=== PATIENT | female | born 1990 | race Hispanic/Latino ===

== ENCOUNTER 2018-06-27 21:29 | Inpatient (IN) | payer MEDICAID ==
[2018-06-27] MEDS ORDERED: AMPICILLIN/NS 2 GM/100 ML 2 GM/100 ML BAG IV ONE (22:24)
[2018-06-27] MEDS ORDERED: MINERAL OIL PO PRN (22:24)
[2018-06-27] MEDS ORDERED: XYLOCAINE 2% INFILTRATI ONE (22:24)
[2018-06-27] MEDS ORDERED: BRETHINE SUB-Q PRN (22:24)
[2018-06-27] MEDS ORDERED: STADOL IV PRN (22:24)
[2018-06-27] MEDS ORDERED: BRETHINE IVP PRN (22:24)
[2018-06-27] MEDS ORDERED: SUBLIMAZE IV PRN (22:24)
[2018-06-27] MEDS ORDERED: PITOCin/NS 20 UNIT/1000ML DRIP 20 UNITS/1,000 ML BAG IV SCH (23:00)
[2018-06-27] MEDS ORDERED: LACTATED RINGERS 1,000 ML IV SCH (23:00)
[2018-06-27 23:31] LABS: Hematocrit 36.7 % (30.3-42.9); Hemoglobin 12.1 gm/dl (10.1-14.3); Mean Corpuscular HGB Conc 33 % (30-34); Mean Corpuscular Volume 92 fl (79-97); Platelet Count 239 K/mm3 (140-440); Red Blood Count 3.99 M/mm3 (3.65-5.03); Red Cell Distribution Width 13.1 % (13.2-15.2)
--- NOTE | 2018-06-27 23:46 | Procedure Note ---
OB Delivery Note - Delivery Date of Delivery: 06/27/18 Surgeon: OCTAVIO MARCOS Estimated blood loss: 200cc - Vaginal Delivery presentation: vertex Delivery position: OA Intrapartum events: precipitous labor- <3hr Delivery induction: none Delivery augmentation: rupture of membranes Delivery monitor: external FHT, external uterine Route of delivery: Delivery placenta: spontaneous Delivery cord: 3 umbilical vessels Episiotomy: none Delivery laceration: 1st degree (vaginal/perineal) Delivery repair: vicryl Anesthesia: none Delivery comments: Infant delivered OA and placed on Mom's chest for [id number] bonding and delayed cord clamping, cut by GramdMa - A at 1 minute: 9 at 5 minutes: 9 Gender: Male (3582gms)
--- NOTE | 2018-06-27 23:57 | History and Physical Report ---
History of Present Illness Date of examination: 06/27/18 Date of admission: 06/27/18 22:39 Chief complaint: contractions History of present illness: 28y/o @ 40+0 weeks presents with regular uterine contractions. She denies leakage of fluid. Patient states she is GBS positive. Past History Past Medical History: no pertinent history Past Surgical History: no surgical history Social history: single - Obstetrical History Expected Date of Delivery: 06/27/18 Actual Gestation: 40 Week(s) 0 Day(s) : 4 Para: 2 Hx # Term Pregnancies: 2 Number of Pregnancies: 0 Spontaneous Abortions: 1 Induced : 0 Number of Living Children: 2 Medications and Allergies Allergies Allergy/AdvReac Type Severity Reaction Status Date / Time No Known Allergies Allergy Unverified 10/03/13 09:03 Home Medications Medication Instructions Recorded Confirmed Last Taken Type Vit,Calc76/Iron/Folic 1 tab PO DAILY 06/27/18 06/27/18 06/27/18 History [Pnv 29-1 Tablet] valACYclovir [Valtrex] 500 mg PO BID 06/27/18 06/27/18 06/27/18 History Active Meds: Active Medications Butorphanol Tartrate (Stadol) 2 mg IV Q2H PRN PRN Reason: Pain , Severe (7-10) Ephedrine Sulfate (Ephedrine Sulfate) 10 mg IV Q2M PRN PRN Reason: Hypotension Fentanyl (Sublimaze) 100 mcg IV Q2H PRN PRN Reason: Labor Pain Ampicillin Sodium (Ampicillin/Ns 1 Gm/50 Ml) 1 gm in 50 mls @ 100 mls/hr IV Q4HR LUIGI; Protocol Lactated Ringer's (Lactated Ringers) 1,000 mls @ 125 mls/hr IV DIRECT LUIGI Oxytocin/Sodium Chloride (Pitocin/Ns 20 Unit/1000ml Drip) 20 units in 1,000 mls @ 125 mls/hr IV DIRECT LUIGI Mineral Oil (Mineral Oil) 30 ml PO QHS PRN PRN Reason: Constipation Terbutaline Sulfate (Brethine) 0.25 mg SUB-Q ONCE PRN PRN Reason: Hyperstimulation/Hypertonicity Terbutaline Sulfate (Brethine) 0.25 mg IVP ONCE PRN PRN Reason: Hyperstimulation/Hypertonicity Review of Systems All systems: negative Genitourinary: contractions - Vital Signs Vital signs: Vital Signs Pulse Pulse Ox 81 100 06/27/18 21:46 06/27/18 21:46 Temp Pulse Resp BP Pulse Ox 98.8 F 75 20 128/74 97 06/27/18 21:48 06/27/18 23:55 06/27/18 21:48 06/27/18 23:55 06/27/18 22:16 - Physical Exam Breasts: Positive: deferred Cardiovascular: Regular rate Lungs: Positive: Clear to auscultation Abdomen: Positive: normal appearance Results Result Diagrams: 06/27/18 22:20 Abnormal lab results 06/27/18 Range/Units 22:20 WBC 11.5 H (4.5-11.0) K/mm3 RDW 13.1 L (13.2-15.2) % All other labs normal. Assessment and Plan - Patient Problems (1) Active labor at term Current Visit: Yes Status: Acute Plan to address problem: admit to L&D
[2018-06-28] MEDS ORDERED: DULCOLAX PR PRN (00:04)
[2018-06-28] MEDS ORDERED: TUCKS PAD TP PRN (00:04)
[2018-06-28] MEDS ORDERED: MILK OF MAGNESIA PO PRN (00:04)
[2018-06-28] MEDS ORDERED: LANSINOH TP PRN (00:04)
[2018-06-28] MEDS ORDERED: PHENERGAN PO PRN (00:04)
[2018-06-28] MEDS ORDERED: TYLENOL PO PRN (00:04)
[2018-06-28] MEDS ORDERED: BENADRYL PO PRN (00:04)
[2018-06-28] MEDS ORDERED: ZOFRAN IV PRN (00:04)
[2018-06-28] MEDS ORDERED: PHENERGAN PR PRN (00:04)
[2018-06-28] MEDS: NORCO 5/325 PO PRN ×2 (00:48→23:44)
[2018-06-28] MEDS: IBUPROFEN PO SCH ×4 (00:49→23:44)
[2018-06-28] MEDS ORDERED: SODIUM CHLORIDE FLUSH SYRINGE 10 ML IV PRN (01:00)
[2018-06-28] MEDS ORDERED: AMPICILLIN/NS 1 GM/50 ML 1 GM/50 ML BAG IV SCH (02:25)
--- NOTE | 2018-06-28 08:31 | Progress Note ---
Assessment and Plan A/P PPD1 s/p bonding with baby vss routine PP care Subjective - Subjective Date of service: 06/28/18 Principal diagnosis: s/p Patient reports: appetite normal, voiding normally, pain well controlled, flatus, ambulating normally [place]: doing well Objective - Vital Signs Latest vital signs: Vital Signs Temp Pulse Resp BP BP Pulse Ox 06/28/18 01:20 98.0 F 77 20 115/67 06/28/18 00:51 80 114/73 06/28/18 00:49 20 06/28/18 00:48 20 06/28/18 00:38 82 115/58 06/28/18 00:27 72 117/55 06/28/18 00:10 87 123/70 06/27/18 23:55 75 128/74 06/27/18 23:50 97.2 F L 20 06/27/18 22:16 85 97 06/27/18 22:11 76 99 06/27/18 22:06 88 99 06/27/18 22:01 98 H 99 06/27/18 21:56 89 97 06/27/18 21:51 84 98 06/27/18 21:48 98.8 F 76 20 118/74 98 06/27/18 21:47 76 118/74 06/27/18 21:46 81 100 Intake and Output 06/27/18 06/28/18 06/28/18 23:59 07:59 15:59 Intake Total 240 Output Total 400 Balance -160 Intake: Oral 240 Output: Urine 400 Void 400 Other: Total, Intake Amount 240 Total, Output Amount 400 # Voids Void 2 Weight 98.702 kg Estimated Blood Loss 200 - Exam Breasts: Present: normal Cardiovascular: Present: Regular rate, Normal S1 Lungs: Present: Clear to auscultation, Normal air movement Abdomen: Present: normal appearance, soft, normal bowel sounds. Absent: distention, tenderness, guarding Vulva: both: normal Uterus: Present: normal, firm, fundal height below umbilicus. Absent: bogginess, tenderness Extremities: Present: normal Deep Tendon Reflex Grade: Normal +2 - Labs Labs: Abnormal lab results 06/27/18 Range/Units 22:20 WBC 11.5 H (4.5-11.0) K/mm3 RDW 13.1 L (13.2-15.2) %
[2018-06-28 11:53] LABS: Hematocrit 32.1 % (30.3-42.9); Hemoglobin 10.8 gm/dl (10.1-14.3)
--- NOTE | 2018-06-29 00:43 | Discharge Summary ---
Providers - Providers Date of Admission: 06/27/18 22:39 Date of discharge: 06/29/18 Attending physician: GRAHAM BARGER Primary care physician: GRAHAM BARGER Hospitalization Reason for admission: active labor Delivery: Episiotomy: none Laceration: none Incision: normal Other procedures: none complications: none Discharge diagnosis: IUP at term delivered [place] baby: male Hospital course: patient came in active labor and delivered a viable male . She did well and was discharged home PP day 2. f/u in 4 weeks Condition at discharge: Good Disposition: DC-01 TO HOME OR SELFCARE Plan - Discharge Medications Prescriptions: Ferrous Sulfate 325 mg PO BID #60 tablet. Ibuprofen [Motrin] 600 mg PO Q8H PRN #30 tablet PRN Reason: Pain oxyCODONE /ACETAMINOPHEN [Percocet 5/325] 1 tab PO Q6HR PRN #30 tablet PRN Reason: Pain - Provider Discharge Summary Activity: routine, no sex for 6 weeks, no strenuous exercise Diet: routine Instructions: routine Additional instructions: [] Smoking cessation referral if applicable(refer to patient education folder for contact #) [] Refer to [facility] Booklet Call your doctor immediately for: * Fever > 100.5 * Heavy vaginal bleeding ( >1 pad per hour) * Severe persistent headache * Shortness of breath * Reddened, hot, painful area to leg or breast * Drainage or odor from incision. * Keep incision clean and dry at all times and follow doctor's instructions regarding bathing/showering - Follow up plan Follow up: GRAHAM BARGER MD [Primary Care Provider] - 07/25/18
[2018-06-29] MEDS: IBUPROFEN PO SCH ×3 (05:54→18:07)
[2018-06-29] MEDS: NORCO 5/325 PO PRN (05:54)
[2018-06-30 11:50] VITALS: BP 102/61
== END 2018-06-29 19:30 | disposition home or self-care (01) | DRG 775 ==
LOC: TRG 21:29 → LD 22:39 → OB 06-28 01:14
PROVIDERS: ADMIT Obstetrics & Gynecology; ATTEND Obstetrics & Gynecology
PROC: 10E0XZZ Delivery of Products of Conception, External Approach (ICD-10-PCS; principal; 2018-06-27)
PROC: 0HQ9XZZ Repair Perineum Skin, External Approach (ICD-10-PCS; 2018-06-27)
DX: O62.3 Precipitate labor (principal); Z3A.40 40 weeks gestation of pregnancy; Z37.0 Single live birth; O70.0 First degree perineal laceration during delivery
CPT/HCPCS: 36415; 85014; 85018; 85027; 86592; 86850; 86900; 86901; G0378; J2590